=== PATIENT | female | born 1995 | race Two or more races ===

== ENCOUNTER 2023-11-25 20:53 | Observation (INO) | payer OTHER ==
[2023-11-25] MEDS ORDERED: ONDANSETRON 4 MG/2 ML VIAL ONE (21:58)
[2023-11-25] MEDS ORDERED: ACETAMINOPHEN INJECTION 100 ML IVPB ONE (21:58)
[2023-11-25 22:04] LABS: BASO % 0.2 % (0-2.0); EOS % 0.9 % (0-4.5); HEMATOCRIT 35.2 % (32.4-45.2); HEMOGLOBIN 11.6 GM/dL (10.7-15.3); LYMPH % 17.9 % (8-40); MCH 24.5 pg (25.7-33.7); MCHC 32.9 g/dl (32.0-36.0); MEAN CELL VOLUME 74.4 fl (80-96); MEAN PLT VOLUME 7.1 fl (7.5-11.1); MONO % 5.6 % (3.8-10.2); NEUT % 75.4 % (42.8-82.8); PLATELET COUNT 346 10^3/uL (134-434); RBC 4.72 M/mm3 (3.60-5.2); WHITE BLOOD COUNT 8.8 K/mm3 (4.0-10.0)
[2023-11-25] MEDS: SODIUM CHLORIDE 1,000 ML IV STA (22:05)
[2023-11-25] MEDS: FAMOTIDINE 20 MG/50 ML IVPB 20 MG/50 ML MG IVPB ONE (22:05)
[2023-11-25] MEDS: ACETAMINOPHEN 1000 MG/100 ML BAG IVPB ONE (22:05)
[2023-11-25 22:21] LABS: POTASSIUM 3.5 mmol/L (3.5-5.1)
[2023-11-25 22:24] LABS: ALBUMIN 3.7 g/dl (3.4-5.0); CALCIUM 9.4 mg/dL (8.5-10.1)
[2023-11-25 22:27] LABS: CREATININE 0.7 mg/dL (0.55-1.3)
[2023-11-25 22:28] LABS: BILIRUBIN,TOTAL 0.9 mg/dL (0.2-1)
[2023-11-26 01:42] LABS: PH,URINE >= 9.0 (5.0-8.0); URINE APPEARANCE CLEAR; URINE BILIRUBIN NEGATIVE (NEGATIVE); URINE COLOR YELLOW; URINE GLUCOSE (UA) NEGATIVE (NEGATIVE); URINE KETONE NEGATIVE (NEGATIVE); URINE LEUK ESTERASE NEGATIVE (NEGATIVE); URINE NITRITE NEGATIVE (NEGATIVE); URINE PROTEIN NEGATIVE (NEGATIVE)
[2023-11-26 01:45] LABS: HCG,QUALITATIVE URINE Negative
[2023-11-26] MEDS ORDERED: ACETAMINOPHEN INJECTION 100 ML IVPB ONE (03:30)
[2023-11-26] MEDS: ACETAMINOPHEN 1000 MG/100 ML BAG IVPB ONE (03:33)
[2023-11-26] MEDS: DEXTROSE 5%-0.45% SALINE 1,000 ML IV SCH (06:24)
[2023-11-26 06:44] LABS: BASO % 0.1 % (0-2.0); EOS % 0.5 % (0-4.5); HEMATOCRIT 36.5 % (32.4-45.2); HEMOGLOBIN 11.7 GM/dL (10.7-15.3); LYMPH % 10.6 % (8-40); MCH 24.2 pg (25.7-33.7); MEAN CELL VOLUME 75.7 fl (80-96); MEAN PLT VOLUME 6.8 fl (7.5-11.1); MONO % 4.6 % (3.8-10.2); NEUT % 84.2 % (42.8-82.8); PLATELET COUNT 277 10^3/uL (134-434); RBC 4.81 M/mm3 (3.60-5.2); RDW 17.5 % (11.6-15.6); WHITE BLOOD COUNT 7.4 K/mm3 (4.0-10.0)
[2023-11-26 07:06] LABS: CALCIUM 8.3 mg/dL (8.5-10.1)
[2023-11-26 07:10] LABS: CREATININE 0.7 mg/dL (0.55-1.3)
[2023-11-26] MEDS: ACETAMINOPHEN 1000 MG/100 ML BAG IVPB PRN (12:34)
[2023-11-26] MEDS: ONDANSETRON 4 MG/2 ML VIAL IVPUSH PRN (20:20)
[2023-11-27 08:05] VITALS: RESP 18
[2023-11-27 09:13] LABS: HEMOGLOBIN 10.5 GM/dL (10.7-15.3); MCH 24.2 pg (25.7-33.7); MCHC 31.9 g/dl (32.0-36.0); MEAN CELL VOLUME 75.7 fl (80-96); MEAN PLT VOLUME 7.4 fl (7.5-11.1); PLATELET COUNT 239 10^3/uL (134-434); RBC 4.36 M/mm3 (3.60-5.2); WHITE BLOOD COUNT 3.9 K/mm3 (4.0-10.0)
[2023-11-27 09:17] LABS: POTASSIUM 3.7 mmol/L (3.5-5.1)
[2023-11-27 09:27] LABS: BLOOD UREA NITROGEN 5.6 mg/dL (7-18); CREATININE 0.6 mg/dL (0.55-1.3)
[2023-11-27 09:28] LABS: TOT PROT 6.3 g/dl (6.4-8.2)
[2023-11-27 09:29] LABS: BILIRUBIN,TOTAL 0.9 mg/dL (0.2-1); CALCIUM 8.2 mg/dL (8.5-10.1)
[2023-11-27 09:32] LABS: ALBUMIN 2.9 g/dl (3.4-5.0)
[2023-11-28] MEDS: PANTOPRAZOLE SODIUM 40 MG VIAL IVPUSH SCH (09:55)
[2023-11-28 11:12] LABS: BASO % 0.3 % (0-2.0); EOS % 1.2 % (0-4.5); HEMOGLOBIN 10.6 GM/dL (10.7-15.3); LYMPH % 24.4 % (8-40); MCH 24.2 pg (25.7-33.7); MCHC 32.1 g/dl (32.0-36.0); MEAN CELL VOLUME 75.4 fl (80-96); MEAN PLT VOLUME 7.2 fl (7.5-11.1); MONO % 8.2 % (3.8-10.2); NEUT % 65.9 % (42.8-82.8); PLATELET COUNT 265 10^3/uL (134-434); RBC 4.37 M/mm3 (3.60-5.2); RDW 17.4 % (11.6-15.6); WHITE BLOOD COUNT 4.2 K/mm3 (4.0-10.0)
[2023-11-28 11:30] LABS: POTASSIUM 3.9 mmol/L (3.5-5.1)
[2023-11-28 11:32] LABS: CALCIUM 8.3 mg/dL (8.5-10.1)
[2023-11-28 11:33] LABS: ALBUMIN 2.9 g/dl (3.4-5.0); BLOOD UREA NITROGEN 3.9 mg/dL (7-18)
[2023-11-28 11:36] LABS: CREATININE 0.6 mg/dL (0.55-1.3)
[2023-11-28 11:37] LABS: BILIRUBIN,TOTAL 0.5 mg/dL (0.2-1)
[2023-11-28 11:38] LABS: TOT PROT 6.4 g/dl (6.4-8.2)
[2023-11-28] MEDS ORDERED: oxyCODONE HCL 5 MG TABLET PO PRN (19:52)
[2023-11-28] MEDS ORDERED: BENZOCAINE 28 GM HEMORRHOIDAL OINTMENT TP PRN (19:52)
[2023-11-28] MEDS ORDERED: WITCH HAZEL 50% (TUCKS) 40 PAD/JAR PAD TP PRN (19:52)
[2023-11-28] MEDS ORDERED: METHYLERGONOVINE MALEATE 0.2 MG/1 ML AMP IM PRN (19:52)
[2023-11-28] MEDS ORDERED: BENZOCAINE 20% 57 GM BOTTLE TP PRN (19:52)
[2023-11-28] MEDS ORDERED: ACETAMINOPHEN 325 MG TABLET (FP) PO PRN (19:52)
[2023-11-28] MEDS ORDERED: BISACODYL 10 MG SUPP.RECT RC PRN (19:52)
[2023-11-28] MEDS ORDERED: IBUPROFEN 600 MG TABLET (FP) PO PRN (19:52)
[2023-11-28] MEDS ORDERED: OXYTOCIN 20 UNITS in 0.9% NS 20 UNIT/1,000 ML INFUS.BAG IV SCH (20:00)
[2023-11-29 10:34] LABS: BASO % 0.3 % (0-2.0); EOS % 0.9 % (0-4.5); HEMATOCRIT 35.9 % (32.4-45.2); HEMOGLOBIN 11.7 GM/dL (10.7-15.3); LYMPH % 16.2 % (8-40); MCH 24.6 pg (25.7-33.7); MCHC 32.6 g/dl (32.0-36.0); MEAN CELL VOLUME 75.3 fl (80-96); MEAN PLT VOLUME 7.5 fl (7.5-11.1); MONO % 5.5 % (3.8-10.2); NEUT % 77.1 % (42.8-82.8); PLATELET COUNT 281 10^3/uL (134-434); RBC 4.76 M/mm3 (3.60-5.2); RDW 17.2 % (11.6-15.6); WHITE BLOOD COUNT 5.4 K/mm3 (4.0-10.0)
[2023-11-29] MEDS: CALCIUM 250MG/VIT-D 125 UNITS 1 COMBO TABLET PO SCH (10:34)
[2023-11-29] MEDS ORDERED: SENNOSIDES/DOCUSATE COMBO (SENNA PLUS) TABLET (UD) PO PRN (22:00)
[2023-11-29 23:38] VITALS: BMI 18.8
[2023-11-30] MEDS: IRON SUCROSE INJECTION 200 MG in SODIUM CHLORIDE 100 ML IVPB ONE (07:11)
[2023-11-30] MEDS: MAG HYDROX/AL HYDROX/SIMETH 30 ML UNIT-DOSE CUP PO PRN (09:32)
[2023-11-30] MEDS ORDERED: PANTOPRAZOLE 40 MG TABLET PO SCH (10:00)
[2023-11-30 14:24] VITALS: BP 98/60; PULSE 65; TEMP 97.7
== END 2023-11-30 18:13 | disposition home or self-care (01) ==
LOC: JER 20:53 → JERBED 11-26 05:03 → J6S 11-26 10:06
PROVIDERS: ADMIT Family Medicine; ATTEND Family Medicine
PROC: 3E033NZ Introduction of Analgesics, Hypnotics, Sedatives into Peripheral Vein, Percutaneous Approach (ICD-10-PCS; principal; 2023-11-26)
PROC: 3E033GC Introduction of Other Therapeutic Substance into Peripheral Vein, Percutaneous Approach (ICD-10-PCS; 2023-11-26)
PROC: 3E0337Z Introduction of Electrolytic and Water Balance Substance into Peripheral Vein, Percutaneous Approach (ICD-10-PCS; 2023-11-26)
DX: K52.9 Noninfective gastroenteritis and colitis, unspecified (principal); R30.0 Dysuria; Q78.0 Osteogenesis imperfecta; L29.8 Other pruritus; R22.1 Localized swelling, mass and lump, neck; R10.84 Generalized abdominal pain; F41.8 Other specified anxiety disorders
CPT/HCPCS: 0241U-QW; 36415; 74018-TC-FY; 74019-TC-FY; 74177-TC; 76856-TC; 80048; 80053; 80307; 81003; 82728; 83540; 83550; 83690; 84484; 84703; 85025; 85027; 85379; 93005; 93010; 93306-TC; 96361; 96365; 96375; 96376; 99285-25; G0378; J0131; J1756; Q9967

== ENCOUNTER 2024-05-26 23:52 | Emergency (ER) | payer OTHER ==
[2024-05-26 23:56] VITALS: BP 117/85; PULSE 87; RESP 18; TEMP 98; BMI 20.2
[2024-05-27] MEDS ORDERED: ACETAMINOPHEN INJECTION 100 ML ONE (02:03)
[2024-05-27] MEDS ORDERED: LIDOCAINE 4% PATCH TP ONE (02:03)
[2024-05-27 02:07] LABS: BASO % 0.5 % (0-2.0); EOS % 1.2 % (0-4.5); HEMATOCRIT 35.7 % (32.4-45.2); HEMOGLOBIN 11.6 GM/dL (10.7-15.3); LYMPH % 22.7 % (8-40); MCH 25.1 pg (25.7-33.7); MCHC 32.5 g/dl (32.0-36.0); MEAN CELL VOLUME 77.2 fl (80-96); MEAN PLT VOLUME 6.7 fl (7.5-11.1); MONO % 7.7 % (3.8-10.2); NEUT % 67.9 % (42.8-82.8); PLATELET COUNT 379 10^3/uL (134-434); RBC 4.63 M/mm3 (3.60-5.2); RDW 15.7 % (11.6-15.6)
[2024-05-27] MEDS: LIDOCAINE 5% TOPICAL PATCH TP ONE (02:13)
[2024-05-27] MEDS: SODIUM CHLORIDE 0.9% 500 ML INFUS.BAG IV ONE (02:13)
[2024-05-27] MEDS: ACETAMINOPHEN 1000 MG/100 ML BAG IVPB ONE (02:14)
[2024-05-27 02:32] LABS: CHLORIDE 106 mmol/L (98-107); POTASSIUM 3.9 mmol/L (3.5-5.1); SODIUM 138 mmol/L (136-145)
[2024-05-27 02:34] LABS: ALBUMIN 3.6 g/dl (3.4-5.0); ANION GAP 3 mmol/L (4-13); CALCIUM 9.2 mg/dL (8.5-10.1); CO2 29 mmol/L (21-32)
[2024-05-27 02:35] LABS: BLOOD UREA NITROGEN 5.4 mg/dL (7-18); GLUCOSE,RANDOM 92 mg/dL (74-106)
[2024-05-27 02:37] LABS: SGPT/ALT 24 U/L (13-61)
[2024-05-27 02:38] LABS: CREATININE 0.6 mg/dL (0.55-1.3); SGOT/AST 17 U/L (15-37)
[2024-05-27 02:39] LABS: BILIRUBIN,TOTAL 0.5 mg/dL (0.2-1); TOT PROT 7.8 g/dl (6.4-8.2)
[2024-05-27 02:40] LABS: ALK PHOS 68 U/L (45-117)
[2024-05-27 02:59] LABS: ERYTHROCYTE SEDIMENTATION RATE 27 mm/hr (0-20)
[2024-05-27 03:31] LABS: HIV INTERPRETATION NEGATIVE (NEGATIVE)
[2024-05-27] MEDS ORDERED: DALBAVANCIN HCL 500 MG VIAL (RESTRICTED TO ID ONLY) IVPB ONE (04:09)
[2024-05-27] MEDS: DALBAVANCIN HCL 1,500 MG in DEXTROSE 5%-WATER - 500 ML IVPB ONE (04:27)
[2024-05-27] MEDS ORDERED: LIDOCAINE PATCH REMOVAL MC ONE (14:00)
== END 2024-05-27 06:25 | disposition home or self-care (01) ==
LOC: JER 23:52
PROC: 3E03329 Introduction of Other Anti-infective into Peripheral Vein, Percutaneous Approach (ICD-10-PCS; principal; 2024-05-27)
PROC: 3E033NZ Introduction of Analgesics, Hypnotics, Sedatives into Peripheral Vein, Percutaneous Approach (ICD-10-PCS; 2024-05-27)
DX: M25.511 Pain in right shoulder (principal); R20.0 Anesthesia of skin
CPT/HCPCS: 36415; 73030-TC-RT-FY; 80053; 85025; 85651; 86140; 86803; 87389; 99284-25; J0131; J0875

== ENCOUNTER 2024-08-25 02:51 | Emergency (ER) | payer OTHER ==
[2024-08-25 03:00] VITALS: BP 102/76; PULSE 84; RESP 18; TEMP 99; BMI 18.8
[2024-08-25] MEDS ORDERED: ACETAMINOPHEN 325 MG TABLET (FP) ONE (04:25)
[2024-08-25] MEDS ORDERED: ALBUTEROL SO4 2.5/IPRATROPIUM 0.5 INH SOL 3 ML VIAL.NEB. NEB ONE (04:26)
[2024-08-25] MEDS: ACETAMINOPHEN 500 MG TABLET (FP) PO ONE (04:32)
[2024-08-25] MEDS: ALBUTEROL SO4 2.5/IPRATROPIUM 0.5 INH SOL 3 ML VIAL.NEB. NEB ONE (04:32)
[2024-08-25] MEDS ORDERED: IBUPROFEN 400 MG TABLET (FP) PO ONE (04:54)
== END 2024-08-25 06:07 | disposition home or self-care (01) ==
LOC: JER 02:51
PROC: 3E0F7GC Introduction of Other Therapeutic Substance into Respiratory Tract, Via Natural or Artificial Opening (ICD-10-PCS; principal; 2024-08-25)
DX: J45.901 Unspecified asthma with (acute) exacerbation (principal); R05.9 Cough, unspecified; Z20.822 Contact with and (suspected) exposure to COVID-19
CPT/HCPCS: 0241U-QW; 99283-25